=== PATIENT | male | born 1955 | race Caucasian/White ===

== ENCOUNTER 2023-10-14 13:25 | Emergency (ER) | payer OTHER ==
[2023-10-14 13:38] VITALS: BP 152/87; O2SAT 100
--- NOTE | 2023-10-14 13:39 | ED Physician Documentation ---
PD HPI BACK PAIN - Stated complaint Stated Complaint: LWR BK PX/INJURY - Chief complaint Chief Complaint: Trauma Ch/Bk - History obtained from History obtained from: Patient - History of Present Illness Timing - onset: Yesterday Timing - duration: Days (1) Timing - details: Abrupt onset, Still present Location: Lower Quality: Pain, Spasm, Sharp Associated symptoms: No: Weakness, Numbness, Incontinent of urine Contributing factors: Trauma (he was 7 feet up on a ladder that slid out backward, causing him to land hands and knees with a jolt, abrupt pain in lumbar area and right knee. Pain with ROM since.) Review of Systems Musculoskeletal: reports: Back pain. denies: Neck pain Neurologic: denies: Focal weakness, Numbness, Headache PD PAST MEDICAL HISTORY - Past Medical History Past Medical History: Yes Cardiovascular: High cholesterol - Past Surgical History Past Surgical History: No - Present Medications Home Medications: Ambulatory Orders Medication Instructions Recorded Confirmed Atorvastatin Calcium 40 mg PO DAILY 10/14/23 10/14/23 Calcitonin [Fortical] 1 sprays MARCELO DAILY #1 each 10/14/23 Docusate Sodium 100Mg Capsule 100 mg PO DAILY #20 cap 10/14/23 [Colace 100Mg Capsule] HYDROcod/ACETAM 5/325 [[place] 5/325] 1 ea PO Q6H PRN #25 tablet 10/14/23 Meloxicam [Mobic] 7.5 mg PO BID 10 Days #20 tablet 10/14/23 tiZANidine [Zanaflex] 4 mg PO Q8H PRN #25 tablet 10/14/23 - Allergies Allergies/Adverse Reactions: Allergies Allergy/AdvReac Type Severity Reaction Status Date / Time No Known Drug Allergies Allergy Verified 10/14/23 13:36 - Social History Does the pt smoke?: No Smoking Status: Never smoker PD ED PE NORMAL - Vitals Vital signs reviewed: Yes - General General: Alert and oriented X 3, Well developed/nourished, Other (guarded ROM for the back. ) - HEENT HEENT: Atraumatic - Neck Neck: Supple, no meningeal sign, No bony TTP - Abdomen Abdomen: Soft, Non tender - Back Back: Other (tender mid lumbar area without deformity. ) - Derm Derm: Normal color, Warm and dry - Neuro Neuro: Alert and oriented X 3, No motor deficit, No sensory deficit, Normal speech Results - Vitals Vitals: Vital Signs - 24 hr 10/14/23 13:34 Temperature 36.7 C Heart Rate 66 Respiratory 16 Rate Blood Pressure 152/87 H O2 Saturation 100 Oxygen O2 Source Room air - Rads (name of study) right knee Relevant Findings:: Prelim report reviewed (no fractures), EMP independent interpretation of test lumbar CT Relevant Findings:: Prelim report reviewed, EMP independent interpretation of test (L3 burst fracture without any retropulsed fragments. Canal is clear. ) Procedures - Splint (location) - Minor TLSO brace Splint applied by: Physician Type of splint: Other (TLSO brace) Other: Patient tolerated well, No complications, Neurovascular intact PD Medical Decision Making - ED course Complexity details: reviewed results (knee xray is okay and does not seem l igamentous on exam. Lumbar pain with guarded ROM and CT scan showing burst fracture without canal impingement. ), considered differential (fell from ladder, onto knee with some pain. Pain in lumbar area when landed with jolt. Xray showing L3 burst fracture. Normal neuro exam. ), d/w patient Departure - Departure Disposition: 01 Home, Self Care Clinical Impression: Knee contusion, Fall from ladder, Burst fracture of lumbar vertebra Condition: Stable Record reviewed to determine appropriate education?: Yes Instructions: ED Fx Comp Vertebral Follow-Up: Cory Vasquez MD [Primary Care Provider] - Prescriptions: Docusate Sodium 100Mg Capsule [Colace 100Mg Capsule] 100 mg PO DAILY #20 cap Calcitonin [Fortical] 1 sprays MARCELO DAILY #1 each Meloxicam [Mobic] 7.5 mg PO BID 10 Days #20 tablet HYDROcod/ACETAM 5/325 [[place] 5/325] 1 ea PO Q6H PRN #25 tablet PRN Reason: Pain tiZANidine [Zanaflex] 4 mg PO Q8H PRN #25 tablet PRN Reason: Spasms Comments: Your knee x-ray appears normal. You will still have some pain and soreness since you are there from either the bruising or twisting of it. Activity as tolerated. The main injury is a compression/burst fracture of the third lumbar vertebrae. It is incomplete and that it does not extend all the way through the whole body of the vertebra and there is no involvement in the posterior part or into the spinal canal. However the front part does have loss of height. Refer to the pictures we had looked at. The radiology report did just come through and confirms the finding and corroborates it. Activity as tolerated. We are trying to fit you with a support brace for the low back that you can wear when up and around. You do not have to have it on all the time. It does provide support with sitting and walking so there is less motion on the broken area. The improvement in pain should occur moderately well over the first couple of weeks and then plateau and still be painful for another 3 to 4 weeks. Healing time is about 4 to 6 weeks for this to be more firm but then back to full normal activity will commonly be 3 to 4 months. It would be good to follow-up with your primary care and 1/2 to 2 weeks to establish how you are doing and you may be needing more pain medicine even before that so follow-up appointment. I did send prescriptions for anti-inflammatory, muscle relaxant, a calcitonin nasal spray, stool softener and pain pills to the [facility] pharmacy in [place]. He is a combination of all these modalities. Progress activity as tolerated. I am prescribing a short course of narcotic pain medication for you. These are potentially dangerous and addictive medications that should be used carefully. These medications may constipate you. Take an jigc-jwp-sduzyct stool softener such as docusate twice daily with plenty of water while taking these medications. If you go 24 hours without a bowel movement, take [id number] MiraLAX, per package instructions. Do not drink or drive while taking these medications. If you received narcotic or sedating medications while in the emergency department do not drive for 24 hours. Store this medication in a safe, secure place and out of reach of children. It is a violation of federal law to give or sell this medication to another person or to use in a manner other than prescribed. The ED will not refill narcotic prescriptions, including prescriptions lost or stolen. You can dispose of unwanted medications at the [facility]'s office or at several pharmacies such as [facility]. Forms: PCP List Discharge Date/Time: 10/14/23 15:57
[2023-10-14] MEDS: ACETAMINOPHEN 325 MG TABLET PO STA (14:19)
[2023-10-14] MEDS: HYDROcod/ACETAM 5/325 MG TABLET PO STA (14:19)
[2023-10-14] MEDS: methocarbamoL 500 MG TABLET PO STA (14:19)
[2023-10-14] MEDS: NAPROXEN 250 MG TABLET PO STA (14:19)
--- NOTE | 2023-10-14 14:50 | XRAY Report ---
PROCEDURE: Knee 3V RT INDICATIONS: fall lader yesterday, struck knee TECHNIQUE: 3 views of the knee(s) were acquired. COMPARISON: None. FINDINGS: Bones: No fractures or dislocations. Degenerative changes with moderate joint space narrowing of th e medial compartment. No suspicious bony lesions. Soft tissues: Small knee joint effusion. No suspicious soft tissue calcifications or masses. IMPRESSION: No acute bony abnormality. Reviewed by: Gallo Madrigal MD on 10/14/2023 2:48 PM PDT Approved by: Gallo Madrigal MD on 10/14/2023 2:48 PM PDT Station ID: [id number]
--- NOTE | 2023-10-14 14:53 | CT Report ---
PROCEDURE: Lumbar Spine WO INDICATIONS: fall ladder yest, low back pain abruptly TECHNIQUE: Noncontrast 3 mm thick sections acquired from the T12 level to the sacrum. Sagittal and coronal refo rmats were constructed. For radiation dose reduction, the following was used: automated exposure co ntrol, adjustment of mA and/or kV according to patient size. COMPARISON: None. FINDINGS: Image quality: Excellent. Bones: Straightening of normal lordosis with minimal levocurvature. Fracture of the L3 vertebral body involving the superior and anterior endplates with possible involvement of the posterior endplate. T here is mild to moderate height loss anteriorly. There is no significant retropulsion. Mild degenerat yassine changes at other levels without significant central canal or neuroforaminal stenosis. Soft tissues: No retroperitoneal masses or hematomas. Visualized aorta is normal in caliber. IMPRESSION: Incomplete burst fracture of the L3 vertebral body with mild to moderate height loss anteriorly. No s ignificant retropulsion. Reviewed by: Gallo Madrigal MD on 10/14/2023 2:52 PM PDT Approved by: Gallo Madrigal MD on 10/14/2023 2:52 PM PDT Station ID: [id number]
== END 2023-10-14 15:57 | disposition home or self-care (01) ==
LOC: ED 13:25
DX: S32.031A Stable burst fracture of third lumbar vertebra, initial encounter for closed fracture (principal); W11.XXXA Fall on and from ladder, initial encounter
CPT/HCPCS: 72131; 73562; 99284; A9270